=== PATIENT | female | born 1960 | race Hispanic/Latino ===

== ENCOUNTER 2023-05-10 06:55 | Day surgery (SDC) | payer OTHER ==
[2023-05-06 13:20] VITALS: BP 141/78; PULSE 66; RESP 16
[2023-05-06 13:42] LABS: BASOPHILS # (AUTO) 0.03 K/uL (0.00-0.20); BASOPHILS % (AUTO) 0.4 % (0.0-5.0); EOSINOPHILS # (AUTO) 0.16 K/uL (0.00-0.70); EOSINOPHILS % (AUTO) 2.1 % (0.0-8.0); HEMATOCRIT 44.7 % (36-48); IMMATURE GRANULOCYTE ABSOLUTE 0.02 K/uL (0-1); LYMPHOCYTES # (AUTO) 3.9 K/uL (1.0-4.8); LYMPHOCYTES % (AUTO) 51.2 % (21.0-51.0); MEAN CORPUSCULAR HEMOGLOBIN 29.7 pg (27.0-33.0); MEAN CORPUSCULAR HGB CONC 32.4 g/dL (32.0-36.0); MEAN CORPUSCULAR VOLUME 91.4 fL (79-99); MONOCYTES # (AUTO) 0.6 K/uL (0.1-1.0); MONOCYTES % (AUTO) 8.1 % (3.0-13.0); NEUTROPHILS # (AUTO) 2.9 K/uL (1.8-7.7); NEUTROPHILS % (AUTO) 37.9 % (40.0-77.0); PLATELET COUNT (AUTO) 235 K/uL (130-400); RED BLOOD CELL COUNT(AUTO) 4.89 MIL/uL (4.00-5.50); RED CELL DISTRIBUTION WIDTH 13.6 % (11.0-15.5); WHITE BLOOD COUNT (AUTO) 7.5 K/uL (4.8-10.8)
[2023-05-06 13:51] LABS: CREATININE 0.8 mg/dL (0.5-1.5); POTASSIUM 3.9 mmol/L (3.5-5.1)
[~2023-05-10] VITALS: Ht 149.9 cm; Wt 63.1 kg
[2023-05-10] VITALS (21 sets, daily range): BP systolic 105–167; BP diastolic 3–87; PULSE 57–75; RESP 8–18
[~2023-05-10 06:55] MED LIST: ACET-2521 PO; FISH1CAP27 PO; LEVO75TA10 PO; LISI20TA24 PO; OMEP20CA12 PO; SIMV-43 PO
[2023-05-10] MEDS ORDERED: FENTANYL CITRATE PF 50 MCG/1 ML 2ML VIAL ONE ×2 (07:37→09:04)
[2023-05-10] MEDS ORDERED: MIDAZOLAM HCL 1 MG/ML 2ML VIAL ONE (07:37)
[2023-05-10] MEDS: LACTATED RINGERS 1000ML 1,000 ML IV ONE (07:39)
[2023-05-10] MEDS ORDERED: ROCURONIUM BROMIDE 10MG/1ML 5ML VL ONE (07:43)
[2023-05-10] MEDS ORDERED: PROPOFOL 10 MG/ML 20ML VIAL IV ONE ×2 (07:43→08:37)
[2023-05-10] MEDS ORDERED: ONDANSETRON 4MG INJ ONE (07:44)
[2023-05-10] MEDS: INDOCYANINE GREEN 25 MG VIAL IJ ONE (07:45)
[2023-05-10] MEDS ORDERED: ROPIVACAINE 0.5% 5MG/ML 30ML ONE (07:45)
[2023-05-10] MEDS: CEFAZOLIN SODIUM 2 GM VIAL ONE (08:00)
[2023-05-10] MEDS: BUPIVACAINE/PF 0.25% 30ML VIAL IJ ONE (08:21)
[2023-05-10] MEDS ORDERED: EPHEDRINE SULFATE 50 MG/ML AMPULE ONE (08:31)
[2023-05-10] MEDS ORDERED: NEOSTIGMINE METHYLSULFATE 1MG/ML IV ONE (08:51)
[2023-05-10] MEDS ORDERED: GLYCOPYRROLATE 0.2 MG/ML 5 ML VIAL ONE (08:51)
[2023-05-10] MEDS ORDERED: SUGAMMADEX SODIUM 200 MG/2 ML VIAL IV ONE (09:14)
[2023-05-10] MEDS ORDERED: IBUP-1493 PO (10:05)
[2023-05-10] MEDS: KETOROLAC 30MG VIAL (30MG/ML) ONE (10:09)
== END 2023-05-10 11:35 | disposition home or self-care (01) ==
LOC: DAH 06:55
PROVIDERS: ATTEND Surgery
DX: K81.1 Chronic cholecystitis (principal); K82.8 Other specified diseases of gallbladder; I10 Essential (primary) hypertension; K21.9 Gastro-esophageal reflux disease without esophagitis; E78.00 Pure hypercholesterolemia, unspecified; E07.9 Disorder of thyroid, unspecified; Z79.01 Long term (current) use of anticoagulants; Z79.899 Other long term (current) drug therapy; Z98.890 Other specified postprocedural states; Z98.51 Tubal ligation status; Z83.3 Family history of diabetes mellitus; Z80.9 Family history of malignant neoplasm, unspecified; Z79.890 Hormone replacement therapy
CPT/HCPCS: 80048; 85025; 36415; 47562; 88304; 64488; A6260; J7030; A4452; J7120; J3010 ×2; J0665; J3490 ×3; J2250; J2704 ×2; J2405; J1885; J2710; J2795; J0690; C1769; A4649; A4215; A4223; A4213; A4222; A4221; A4663; A4600